=== PATIENT | male | born 1985 | race Caucasian/White ===

== ENCOUNTER 2018-10-11 18:08 | Inpatient (IN) | payer OTHER ==
[2018-10-11 19:37] LABS: Bilirubin Negative (Negative); Blood, Urine Large (Negative); Clarity CLEAR (Clear); Glucose, Urine (Dipstick) Negative (Negative); Leukocyte Negative (Negative); Nitrite Negative (Negative); Protein, Urine (Dipstick) 100 mg/dL (Neg-Trace); Specific Gravity, Urine 1.026 (1.002-1.036); Urobilinogen 0.2 mg/dL (0.2-1.0); pH, Urine 6.5 (5.0-9.0)
[2018-10-11 19:38] LABS: Bacteria/HPF None Seen HPF (None Seen); Hyaline Casts/LPF 0-3 HYALINE CAST LPF (0-3 Hyaline); Pathc Cast-AUWi Flag 0.13 (0-2.49); RBC/HPF GREATER THAN 50-TNTC HPF (0-3); Squamous Epithelial None Seen HPF (0-3); WBC/HPF 0-3 HPF (0-3)
[2018-10-11] MEDS ORDERED: Morphine 4 MG/ML VIAL SLOW IVP PRN (21:57)
[2018-10-11] MEDS ORDERED: HYDROcodone/Acetaminophen 5/325 mg Tablet PO PRN (21:57)
[2018-10-11] MEDS ORDERED: Ondansetron PF 4 MG/2 ML Vial IVP PRN (21:57)
[2018-10-11] MEDS ORDERED: Ondansetron ODT 4 MG TAB SL PRN (21:57)
[2018-10-11] MEDS ORDERED: Acetaminophen 325 MG TAB PO PRN (21:57)
[2018-10-11] MEDS: HYDROcodone/Acetaminophen 5/325 mg Tablet PO PRN (22:10)
[2018-10-11 22:48] VITALS: BMI 41.1
[2018-10-12] MEDS: HYDROcodone/Acetaminophen 5/325 mg Tablet PO PRN ×4 (03:03→21:32)
[2018-10-12] MEDS: Cefepime 2 GM in Sodium Chloride 0.9% 100 ML IVPB SCH ×2 (10:04→20:32)
--- NOTE | 2018-10-12 10:59 | PRG ---
DATE OF SERVICE: 10/12/2018 SUBJECTIVE: The patient did well overnight except he did not sleep. His pain is about the same. It has not worsened. He has been eating and not vomiting. OBJECTIVE: He has been afebrile with vital signs stable with 450 out from the urine standpoint. His scrotum is still significantly erythematous, but there is significant decrease in overall edema as it is much looser than yesterday's exam. There is still no crepitus. There is a little fibrinous debris on that prior excoriation at the midline raphae. There are no new labs as he did not have a white count previously. On physical exam, his overall rash appears worse than yesterday as it is more erythematous and seemingly more inflamed. Talking to the guard, she states that this has been there for 4 months without an obvious diagnosis, but certainly it looks like it is worse from last night to tonight, so there may be now component of a drug reaction allergy in addition to an underlying chronic skin condition. ASSESSMENT: We have a 32-year-old male with scrotal cellulitis, improving, but generalized rash that is worsening. For this reason, I spoke with Dr. Faria regarding this rash condition and he has ordered syphilis screening and will keep in mind that he may have an allergy to penicillin as he got Zosyn yesterday or has an allergy to Bactrim, which is what he was previously taken before coming in. For now, I would continue cefepime bedrest except for bathroom privileges, scrotal elevation and monitoring. Job ID: [id number]
--- NOTE | 2018-10-12 11:03 | ULT ---
FUltrasound renal: HISTORY: 32-year-old male with microhematuria FINDINGS: Right kidney: 11.5 x 6.5 x 7 cm Left kidney: 13 x 6 x 6.5 cm No hydronephrosis bilaterally. At least 2 tiny hyperechoic foci at upper pole parenchyma of left kidney without shadowing. Uncertain ty whether these are portions of blood vessels or tiny calculi. No moderate sized renal cyst or solid mass identified. Urinary bladder volume 220 mL at time of scan. Nonspecific mild diffuse mural thickening of urinary bladder. IMPRESSION: 1. At least 2 tiny echogenic foci in the left renal upper pole parenchyma, nonspecific. 2. No other sonographic renal abnormality identified. 3. Diffuse minimal mural thickening of urinary bladder.
[2018-10-12] MEDS ORDERED: Zolpidem Tartrate 5 MG TAB PO PRN (12:27)
--- NOTE | 2018-10-12 12:33 | PDOC.EVN ---
Event Note - Event Note Event Note: H&P [id number]
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
--- NOTE | 2018-10-12 19:23 | HP ---
CHIEF COMPLAINT: Scrotal swelling and itching all over the place. HISTORY OF PRESENT ILLNESS: This is a 32-year-old male, who states about 4 to 6 days ago he started to have severe significant scrotal swelling and edema. The patient also with lesions raised bumpy erythematous as well as itching for the past 4 to 5 days. The patient states that this has never happened before. Has been incarcerated for 4 months. Has had an infectious autoimmune etiology screening done approximately 2 years ago, which was negative for syphilis Lupe gonorrhea as well as HIV. The patient states that otherwise he has had tattoos all over his body ranging from the tip of his penis, which is smiley face to his legs and arms as well as other regions. The patient states that he has been sexually active. Has had multiple contacts without protection and also has had sexual contact with protection with women only. The patient otherwise denies any other associated symptoms. No alleviating or aggravating factors. The patient seen and examined in the ER, police and fire dispatcher is at bedside. All questions answered. ALLERGIES: NO KNOWN DRUG ALLERGIES. HOME MEDICATIONS: See MAR. PAST MEDICAL HISTORY: Positive for nothing. SOCIAL HISTORY: He was a drinker. Used to do IV drugs, has not been done in the last 4 months since incarceration. PHYSICAL EXAMINATION: VITAL SIGNS: Blood pressure is 142/91, O2 saturations 93% on room air, pulse of 66, temperature of 97.8, respiratory rate of 20. GENERAL: The patient lying in bed, obese, no acute distress. HEENT: Pupils equal, round, and reactive to light and accommodation. Extraocular muscles intact. Oral cavity moist and pink. NECK: Supple, mobile, and nontender. Thyroid appreciated. LUNGS: Clear to auscultation bilaterally. No respiratory distress. CARDIOVASCULAR: Faint systolic ejection murmur appreciated. S1 and S2. Sinus rhythm. ABDOMEN: Distended, rotund. Positive bowel sounds. Soft, nontender, and nondistended. EXTREMITIES: Trace pitting edema in bilateral lower extremities. 2+ peripheral pulses. NEUROLOGIC: Cranial nerves 2 through 12 intact. No loss of motor or sensory function. SKIN: Reveals pimples and pustules around his whole body, which appears to be very pruritic. The patient scratching his all body on the scrotal sac. He does have one lesion that looks slightly pustular stood mildly face tattoo noted on the tip of his penis. The patient is wincing in pain upon palpation of the lesions. LABORATORY AND IMAGING WORKUP: Ultrasound reviewed. CBC and BMP reviewed. ASSESSMENT: 1. Scrotal cellulitis. 2. Non-generalized erythematous rash on the body. 3. Obesity. PLAN: At this point in time, we will obtain HIV, syphilis, gonorrhea, and chlamydia workup. The patient is on Zosyn for now. We will also obtain blood cultures and echocardiogram in case this is infective endocarditis. We will check CBC, BMP in the morning and await workup. Case and plan discussed with the patient at length. He understood and agreed with this plan. Job ID: [id number]
[2018-10-12] MEDS: diphenhydrAMINE 25 MG CAP PO PRN (21:38)
[2018-10-13 07:45] LABS: #Eosinphils 0.5 thou/uL (0.0-0.7); #Lymphocytes 1.4 thou/uL (1.20-3.40); #Monocytes 0.5 thou/uL (0.11-0.59); #Neutrophils 3.4 thou/uL (1.40-6.50); %Basophils 0.8 % (0.0-1.0); %Eosinophils 8.1 % (0.0-10.0); %Lymphocytes 24.2 % (21.0-51.0); %Monocytes 8.8 % (0.0-10.0); %Neutrophils 58.1 % (42.0-75.0); Hemoglobin 13.6 g/dL (14.0-18.0); Mean Corpuscular Volume 93.8 fL (78.0-98.0); Mean Platelet Volume 7.8 fL (7.4-10.4); Platelet Count 236 thou/uL (130-400); RBC Distribution Width 12.8 % (11.5-14.5); Red Blood Cell (RBC) Count 4.38 mill/uL (4.70-6.10); White Blood Cell (WBC) Count 5.9 thou/uL (4.8-10.8)
[2018-10-13] MEDS: Cefepime 2 GM in Sodium Chloride 0.9% 100 ML IVPB SCH ×2 (07:58→20:25)
[2018-10-13 07:59] LABS: Anion Gap 12 mmol/L (10-20); BUN (Urea Nitrogen) 14 mg/dL (8.9-20.6); Calc. Creatinine Clearance 224 mL/min (70-130); Calcium 8.9 mg/dL (7.8-10.44); Carbon Dioxide 27 mmol/L (22-29); Chloride 105 mmol/L (98-107); Estimated GFR-MDRD Greater than 90; Glucose 87 mg/dL (70-105); Potassium 4.2 mmol/L (3.5-5.1); Sodium 140 mmol/L (136-145)
[2018-10-13] MEDS: Enoxaparin Sodium 40 MG/0.4 ML SYRINGE SC SCH (07:59)
[2018-10-13] MEDS: HYDROcodone/Acetaminophen 5/325 mg Tablet PO PRN ×2 (08:08→18:09)
[2018-10-13 08:18] LABS: Syphilis Antibody Nonreactive (Nonreactive); Syphilis Antibody Index 0.03 S/CO (<1.00 Non-Reactive)
[2018-10-13] MEDS: diphenhydrAMINE 25 MG CAP PO PRN ×2 (12:46→18:09)
--- NOTE | 2018-10-13 15:22 | PDOC.PN ---
- Subjective Encounter Start Date: 10/13/18 Encounter Start Time: 15:20 Patient seen and examined, no new issues or complaints. - Objective Vital Signs & Weight: Vital Signs (12 hours) Temp Pulse Resp BP Pulse Ox 10/13/18 08:00 97 10/13/18 07:01 97.7 F 71 18 112/74 97 Weight Weight 303 lb I&O: 10/12/18 10/13/18 10/14/18 06:59 06:59 06:59 Intake Total 700 2200 Output Total 450 2100 Balance 250 100 Result Diagrams: 10/13/18 07:10 10/13/18 07:10 Phys Exam - Physical Examination Constitutional: NAD HEENT: PERRLA, moist MMs, sclera anicteric Neck: no nodes, no JVD, supple Respiratory: no wheezing, no rales, no rhonchi Cardiovascular: RRR, no significant murmur, no rub Gastrointestinal: soft, non-tender, no distention Musculoskeletal: pulses present, edema present (trace) Neurological: non-focal, normal sensation Deviation from normal: skin lesions all over body -: pruritic lesions Dx/Plan (1) Cellulitis of scrotum Code(s): N49.2 - INFLAMMATORY DISORDERS OF SCROTUM Status: Acute (2) Pruritus of male genital organ Code(s): L29.3 - ANOGENITAL PRURITUS, UNSPECIFIED Status: Acute (3) Scrotal edema Code(s): N50.89 - OTHER SPECIFIED DISORDERS OF THE MALE GENITAL ORGANS Status : Acute - Plan * cont abx for now, consultation to ID * syphillis negative, rest of work up pending * cultures pending * labs in AM * case and plan d/w patient at length, he understood and agreed with this plan.
[2018-10-13 15:23] LABS: Albumin 3.5 g/dL (3.5-5.0); Calcium 9.1 mg/dL (7.8-10.44); Protein, Total 6.5 g/dL (6.0-8.3)
[2018-10-13 15:28] LABS: ALT (SGPT) 24 U/L (8-55); AST (SGOT) 18 U/L (5-34); Albumin 3.5 g/dL (3.5-5.0); Alkaline Phosphatase 69 U/L (40-150); Bilirubin, Direct 0.1 mg/dL (0.1-0.3); Bilirubin, Total 0.3 mg/dL (0.2-1.2); Protein, Total 6.6 g/dL (6.0-8.3)
--- NOTE | 2018-10-13 15:43 | RAD ---
FRadiograph chest 2 views: HISTORY: 32-year-old male with diffuse rash FINDINGS: Lungs are clear. Cardiomediastinal silhouette is normal. No pleural effusion or pneumothorax. IMPRESSION: Normal
[2018-10-13 15:45] LABS: Hep B Surf Ag Non-Reactive S/CO (NonReactive); Hep C IgG Ab Non-Reactive (NonReactive); Hep C Index 0.07 S/CO (0-0.79)
[2018-10-13 15:48] LABS: HBSAB Concentration 23.39 mIU/mL; Hep B Surf AB Reactive (NonReactive)
--- NOTE | 2018-10-13 15:51 | PRG ---
DATE OF SERVICE: 10/13/2018 SUBJECTIVE: The patient feels better. He has no complaints. He did shower, so he feels little less itchy, and Benadryl does seem to help. He has no scrotal complaints. OBJECTIVE: VITAL SIGNS: He has been afebrile with vital signs stable. : On exam, the scrotum is still decompressed in comparison to his original exam, but relatively similar to yesterday without any further breakdown or certainly no crepitus noted. I again rearranged the towel support in order to further elevate the scrotum itself. LABORATORY VALUES: Reveal a normal white count with an H and H now 13.6 and 41.1. His creatinine is good at 0.92. Urine culture is negative. IMAGING STUDIES: Renal ultrasound from 10/12/2018 reviewed 2 small hyperechoic spots noted in the left upper kidney that actually appear cortical. So even if they are tiny stones, I do not think that they would be in the collecting system or of concern. Otherwise, there were no masses, hydro, with a normal bladder. A PVR from the day prior was 18 mL by bladder scan. ASSESSMENT: We have a 32-year-old male admitted with scrotal edema as well as a generalized rash that seems to be worsening over time, which may or may not have been exacerbated by a drug reaction. He is currently on cefepime. I discussed the possibility of having Dermatology see him with Dr. Faria, and he will try to see if that is possible on Sunday. Otherwise, his scrotum is slowly improving and will take significant amount of time before it is resolved and it may be beneficial since he was not responding well to Bactrim or minocycline to go ahead and start him on an oral antibiotic while he is here and monitor insuring that the scrotum does not worsen once switched over to oral antibiotics since we do not have any culture to go off. So at this point, I will go ahead and switch him to oral antibiotic and monitor for now. Job ID: [id number] [facility]
--- NOTE | 2018-10-13 21:34 | CON ---
DATE OF CONSULTATION: 10/13/2018 REASON FOR CONSULTATION: Skin rash, scrotal swelling. HISTORY OF PRESENT ILLNESS: A 32-year-old, who is an inmate at [facility] for the past many weeks to months, has had persistent skin eruption with papules and prurigo scattered throughout the body skin both central as well as appendicular structures. The patient had HIV and hepatitis C test reportedly about 8 months ago, which were negative, and then was given minocycline a few weeks ago and then Bactrim, which did not help, the Bactrim was associated with swelling of the scrotum. He denies headaches, visual symptoms, sore throat, odynophagia, or dysphagia. No dental pain. No back pain. No cough or sputum production. No chest pain. No abdominal pain or diarrhea. No genitourinary symptoms. The patient had no neurological symptoms. PAST MEDICAL HISTORY: Not remarkable. PAST SURGICAL HISTORY: Negative. SOCIAL HISTORY: History of methamphetamine use up until 2 years ago. Used to drink alcoholic beverages fairly frequently. Heterosexual. FAMILY HISTORY: Noncontributory. ALLERGY HISTORY: Potentially sulfa drugs in view of the current findings. CURRENT MEDICATIONS: 1. Hydrocodone. 2. Cefepime. 3. Diphenhydramine. 4. Enoxaparin. 5. Sodium chloride. 6. Ambien. PHYSICAL EXAMINATION: VITAL SIGNS: Essentially normal. SKIN: Shows areas of self excoriation and diffuse maculopapular erythematous skin rash distributed through the appendicular and truncal skin area. There is swelling of the scrotum with excoriations and erythema, which is diffusely spread through the scrotal skin, but no tenderness. Multiple tattoos. LYMPH: No lymphadenopathy. HEENT: Ocular movements conjugate. Sclerae are white. Pupils are equal. Conjunctivae are normal. Nasal passages patent. Oral cavity normal. Numerous teeth in place with normal-appearing gums. No thrush. NECK: Supple. No jugular vein distention or carotid bruits. LUNGS: Symmetric. Clear breath sounds. HEART: S1 and S2, regular rate. No S3 or S4. ABDOMEN: Soft, not distended or tender. No ascites. No bladder distention. GENITAL: Shows the swollen scrotal area, but no tenderness. No joint inflammatory process. EXTREMITIES: Pulses 1+ in dorsalis pedis. Plantar responses are flexor. Strength in upper and lower extremities is 5/5. Cognitive function appears to be intact. LABORATORY DATA: White cell count 5.9, hemoglobin 13.6, platelets 236 with normal differential. Chemistry normal, although liver profile was not done. Urinalysis with large blood, greater than 50 rbc's, and serology with negative syphilis serology. IMAGING STUDIES: The patient had a renal ultrasound, which showed small echogenic foci, nonspecific and diffuse, but minimal thickening of the urinary bladder wall. A consult with Urology was obtained and the impression was scrotal edema, possible cellulitis. Echocardiogram, normal EF, poor endocardial definition. ASSESSMENT: 1. Chronic edema, at [facility], was treated with diuretics. 2. Chronic skin eruption, pruritic with maculopapular features and prurigo. DISCUSSION: Differential diagnoses includes systemic causes of maculopapular eruption including infections, particularly hepatitis and HIV, hypersensitivity reactions since the patient has been exposed to sulfa drugs and minocycline. Scabies appears to be less likely. The scrotal edema is likely hypersensitivity reaction to sulfa drugs, not an infectious process. The systemic causes of disseminated pruritus and prurigo need to be considered including autoimmune processes, malignancy, particularly lymphoma. Porphyria cutanea tarda and psoriasis would be other possibilities. We will order chest x-ray, submit other assays including hepatitis serology, HIV, the other components of the chemistry including liver function tests, calcium, serum protein electrophoresis, IgE quantitation. May need a skin biopsy depending on clinical progress, discontinue antimicrobial therapy. Job ID: [id number]
[2018-10-14] MEDS: diphenhydrAMINE 25 MG CAP PO PRN ×3 (01:04→17:42)
[2018-10-14] MEDS: HYDROcodone/Acetaminophen 5/325 mg Tablet PO PRN ×3 (01:04→17:40)
[2018-10-14 07:12] LABS: HIV (1/2) Antibody/Antigen Non-Reactive (NonReactive); HIV 1/2 INDEX 0.13 S/CO (<1.00)
[2018-10-14] MEDS: Enoxaparin Sodium 40 MG/0.4 ML SYRINGE SC SCH (09:02)
[2018-10-14] MEDS: Cefdinir 300 MG CAP PO SCH ×2 (09:02→20:07)
--- NOTE | 2018-10-14 09:03 | PDOC.PN ---
- Subjective Encounter Start Date: 10/14/18 Encounter Start Time: 09:02 Patient seen and examined, no new issues or complaints, all questions answered. - Objective Vital Signs & Weight: Weight Weight 303 lb I&O: 10/13/18 10/14/18 10/15/18 06:59 06:59 06:59 Intake Total 2200 2040 Output Total 2100 2275 Balance 100 -235 Result Diagrams: 10/13/18 07:10 10/13/18 07:10 Phys Exam - Physical Examination Constitutional: NAD HEENT: PERRLA, moist MMs, sclera anicteric Neck: no nodes, no JVD, supple Respiratory: no wheezing, no rales, no rhonchi Cardiovascular: RRR, no significant murmur, no rub Gastrointestinal: soft, non-tender, no distention, positive bowel sounds scrotal edema Musculoskeletal: pulses present, edema present (trace) Dx/Plan (1) Cellulitis of scrotum Code(s): N49.2 - INFLAMMATORY DISORDERS OF SCROTUM Status: Acute (2) Pruritus of male genital organ Code(s): L29.3 - ANOGENITAL PRURITUS, UNSPECIFIED Status: Acute (3) Scrotal edema Code(s): N50.89 - OTHER SPECIFIED DISORDERS OF THE MALE GENITAL ORGANS Status : Acute - Plan * infectious work up pending, thus far negative for HIV, hep B, syphillis * will check [place], C3 and C4 as well * cultures negative thus far * ID and urology following
--- NOTE | 2018-10-14 12:35 | PRG ---
DATE OF SERVICE: 10/14/2018 SUBJECTIVE: The patient actually slept well. He is still itchy, but possibly better. He has no complaints. OBJECTIVE: VITAL SIGNS: He has been afebrile with vital signs stable. : On exam, his scrotum is slightly smaller and definitely softer with less edema. The erythema still present, but not increased. No crepitus and decreased tenderness. ASSESSMENT AND PLAN: We reviewed how we will attempt to get Dermatology input for his skin issues, but otherwise switch him over to oral antibiotics and monitor his scrotum in-house since he failed to outpatient oral antibiotics already. Job ID: [id number] [facility]
[2018-10-14] MEDS: methylPREDNISolone Sod Succ 40 MG VIAL IVP SCH ×2 (13:39→21:28)
--- NOTE | 2018-10-14 18:47 | PRG ---
DATE OF SERVICE: 10/14/2018 SUBJECTIVE: Mr. Jaimes is feeling better. There is less itching. Skin eruption is improving. No abdominal pain or diarrhea. OBJECTIVE: VITAL SIGNS: Normal. SKIN: Shows quite prominent back eruption, which is sort of a morbilliform eruption, very typical of sulfa drug hypersensitivity, and then he has the other ones, which are more like prurigo like in the anterior portion and have been around for 7 months. LUNGS: Clear. HEART: S1 and S2. Regular rate. ABDOMEN: Soft, not distended. NEUROLOGIC: Nonfocal. LABORATORY DATA: Labs have been reviewed. Again, total IgE was 149, which is normal. Calcium normal. Albumin and total protein are normal. Chest x-ray without any abnormalities and hepatitis B and C serology, HIV nonreactive. 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 Recommend discontinuation of antimicrobial therapy and maybe short course of corticosteroids and avoid sulfa drug exposure in the future. Job ID: [id number]
[2018-10-15] MEDS: HYDROcodone/Acetaminophen 5/325 mg Tablet PO PRN ×3 (05:49→18:40)
[2018-10-15] MEDS: methylPREDNISolone Sod Succ 40 MG VIAL IVP SCH ×2 (05:50→15:07)
[2018-10-15] MEDS: diphenhydrAMINE 25 MG CAP PO PRN ×3 (05:50→18:42)
[2018-10-15 06:54] LABS: #Lymphocytes 0.9 thou/uL (1.20-3.40); #Monocytes 0.2 thou/uL (0.11-0.59); #Neutrophils 12.6 thou/uL (1.40-6.50); %Basophils 0.2 % (0.0-1.0); %Eosinophils 0.2 % (0.0-10.0); %Lymphocytes 6.7 % (21.0-51.0); %Monocytes 1.5 % (0.0-10.0); %Neutrophils 91.4 % (42.0-75.0); Hemoglobin 14.8 g/dL (14.0-18.0); Mean Corpuscular HGB CONC 32.3 g/dL (32.0-36.0); Mean Corpuscular Hemoglobin 30.5 pg (27.0-31.0); Mean Corpuscular Volume 94.4 fL (78.0-98.0); Mean Platelet Volume 7.6 fL (7.4-10.4); Platelet Count 285 thou/uL (130-400); RBC Distribution Width 12.7 % (11.5-14.5); Red Blood Cell (RBC) Count 4.86 mill/uL (4.70-6.10); White Blood Cell (WBC) Count 13.8 thou/uL (4.8-10.8)
[2018-10-15 07:09] LABS: Anion Gap 14 mmol/L (10-20); BUN (Urea Nitrogen) 12 mg/dL (8.9-20.6); Calc. Creatinine Clearance 237 mL/min (70-130); Calcium 9.8 mg/dL (7.8-10.44); Carbon Dioxide 27 mmol/L (22-29); Chloride 103 mmol/L (98-107); Estimated GFR-MDRD Greater than 90; Glucose 140 mg/dL (70-105); Potassium 4.6 mmol/L (3.5-5.1); Sodium 139 mmol/L (136-145)
[2018-10-15] MEDS ORDERED: Silver Nitrate Application 1 EACH TOP SCH (07:15)
[2018-10-15] MEDS: Cefdinir 300 MG CAP PO SCH (08:31)
[2018-10-15] MEDS: Enoxaparin Sodium 40 MG/0.4 ML SYRINGE SC SCH (08:31)
[2018-10-15] MEDS ORDERED: Lidocaine 1% (PF) 30 ML VIAL ONE (08:47)
[2018-10-15 09:49] LABS: Hemoglobin A1c 4.9 % (4.0-6.0)
[2018-10-15 13:17] LABS: HIV-1 Quantitative, RNA PCR <20 copies/mL (.)
--- NOTE | 2018-10-15 15:45 | PRG ---
DATE OF SERVICE: 10/15/2018 PROGRESS NOTE: SUBJECTIVE: He is feeling good. His scrotum has continued to improve on oral abx alone. He has no complaints. He had continued to void without difficulty. OBJECTIVE: His vitals have been stable. To document in my notes, a couple of days ago, he was bladder scanned for a PVR of 18mL. On exam, his scrotum is significantly decreased in edema and is much softer and without any crepitus or concern for infectious collections. LABORATORY VALUES: Reveal a white count that has now gone up to 13.8 without an obvious explanation given his improvement in scrotum. ASSESSMENT: We have a 32-year-old male admitted with scrotal edema, that failed outpatient antibiotic therapy, but has done well with initial IV and now switched to oral antibiotic; he is now taking Omnicef; however, his white count is elevated without a good explanation for this. Monitor and repeat WBC in AM. Regarding his skin rash/non-urologic issue.... he also has had this significant global body rash for 4 months. Yesterday, I reviewed in detail with a jewelry drill operator friend who was kind enough to give advice for this since we have no access to Dermatology as an inpatient. She and I reviewed his skin lesions, both in pictures and clinical history and description. She recommended a biopsy of his thigh lesions with a punch biopsy. I also discussed this with Pathology in the best way to obtain it, and they said with both formalin and saline. He is now status post biopsy (see procedure below), and hopefully, we will get some more information regarding that in the next 24h. For now, monitor. PROCEDURE: His thigh was prepped with Betadine. Then lidocaine was used (approximately 5 mL) to anesthetize the area of concern. Two 4-mm punch biopsies were taken, and the specimens were sent-- one in formalin and one saline. There was a silver nitrate stick, although there was only one, and this did not fully help with hemostasis. Therefore, I used a 4-0 Monocryl in a figure-of- eight fashion to control bleeding. Hemostasis was ensured. The area was cleansed. The patient tolerated the procedure well. Job ID: [id number] [facility]
[2018-10-15 16:10] LABS: Alpha 1 0.3 g/dL (0.0-0.4); Alpha 2 0.7 g/dL (0.4-1.0); Beta 1.2 g/dL (0.7-1.3); Gamma 0.9 g/dL (0.4-1.8); Globulin, Total 3.1 g/dL (2.2-3.9); M-Spike Not Observed g/dL (Not Observed)
[2018-10-15] MEDS ORDERED: Fioricet 325/50/40 mg Tablet PO PRN (16:32)
[2018-10-15 18:06] LABS: Chlam.trachomatis by PCR,Urine Not Detected (NotDetected)
[2018-10-15] MEDS: Calcium Carbonate 500 MG ChewTAB PO PRN (19:58)
--- NOTE | 2018-10-15 21:54 | PDOC.PN ---
- Subjective Encounter Start Date: 10/15/18 - Objective Vital Signs & Weight: Vital Signs (12 hours) Temp Pulse Resp BP Pulse Ox 10/15/18 19:41 98 F 85 16 119/71 95 Weight Weight 303 lb I&O: 10/14/18 10/15/18 10/16/18 06:59 06:59 06:59 Intake Total 2040 1000 Output Total 2275 1000 Balance -235 0 Result Diagrams: 10/15/18 06:21 10/15/18 06:21 Dx/Plan - Plan * .
[2018-10-16] MEDS: HYDROcodone/Acetaminophen 5/325 mg Tablet PO PRN ×3 (06:12→20:42)
[2018-10-16] MEDS: Calcium Carbonate 500 MG ChewTAB PO PRN ×3 (06:12→20:42)
[2018-10-16] MEDS: diphenhydrAMINE 25 MG CAP PO PRN ×3 (06:12→20:42)
[2018-10-16 06:29] LABS: Hemoglobin 14.2 g/dL (14.0-18.0); Mean Corpuscular HGB CONC 32.3 g/dL (32.0-36.0); Mean Corpuscular Hemoglobin 30.9 pg (27.0-31.0); Mean Corpuscular Volume 95.5 fL (78.0-98.0); Mean Platelet Volume 7.6 fL (7.4-10.4); Platelet Count 298 thou/uL (130-400); White Blood Cell (WBC) Count 20.1 thou/uL (4.8-10.8)
[2018-10-16 06:41] LABS: Complement-C4 35.7 mg/dL (15-53)
[2018-10-16 06:48] LABS: Band 3 % (5-11); Lymphocytes 4 % (21-51); MDiff Complete? YES; Monocytes 4 % (0-10); Neutrophil 89 % (42-75); Platelet Morphology Comment Appears Adequate; RBC Morphology Normal
[2018-10-16] MEDS: predniSONE 20 MG TAB PO SCH (08:20)
[2018-10-16] MEDS: Enoxaparin Sodium 40 MG/0.4 ML SYRINGE SC SCH (08:20)
[2018-10-16 16:06] LABS: ANA Symphony (Qualitative) Negative (Negative); ANA Symphony (Quantitative) Less than 0.1 Ratio (< 0.7 Negative); dsDNA IgG Antibody 0.6 IU/mL (<10 Negative)
--- NOTE | 2018-10-16 19:04 | PDOC.PN ---
- Subjective Encounter Start Date: 10/16/18 Encounter Start Time: 10:00 Subjective: pt up in bed no complains - Objective Vital Signs & Weight: Vital Signs (12 hours) Temp Pulse Resp BP Pulse Ox 10/16/18 12:00 98.1 F 85 20 141/90 H 98 10/16/18 08:00 98.1 F 70 20 159/99 H 95 Weight Weight 303 lb I&O: 10/15/18 10/16/18 10/17/18 06:59 06:59 06:59 Intake Total 1000 960 Output Total 1000 Balance 0 960 Result Diagrams: 10/16/18 05:58 10/15/18 06:21 Phys Exam - Physical Examination Neck: no nodes, no JVD, supple, full ROM Respiratory: no wheezing, no rales, no rhonchi, wheezing present, clear to auscultation bilateral Cardiovascular: RRR, no significant murmur, no rub, gallop, irregular Deviation from normal: rash appear improving Dx/Plan (1) Cellulitis of scrotum Code(s): N49.2 - INFLAMMATORY DISORDERS OF SCROTUM Status: Acute (2) Pruritus of male genital organ Code(s): L29.3 - ANOGENITAL PRURITUS, UNSPECIFIED Status: Acute (3) Scrotal edema Code(s): N50.89 - OTHER SPECIFIED DISORDERS OF THE MALE GENITAL ORGANS Status : Acute - Plan pt's rash is improving. tolerating oral steroids -: skin biopsy results pending. last day of abx today -: possible discharge in am * . Review of Systems - Review of Systems Respiratory: negative: Cough, Dry, Shortness of Breath, Hemoptysis, SOB with Excertion, Pleuritic Pain, Sputum, Wheezing Cardiovascular: negative: chest pain, palpitations, orthopnea, paroxysmal nocturnal dyspnea, edema, light headedness, other Gastrointestinal: negative: Nausea, Vomiting, Abdominal Pain, Diarrhea, Constipation, Melena, Hematochezia, Other - Medications/Allergies Allergies/Adverse Reactions: Allergies Allergy/AdvReac Type Severity Reaction Status Date / Time No Known Drug Allergies Allergy Verified 10/12/18 01:53 Medications: Current Medications Acetaminophen/Butalbital/Caffeine (Fioricet) 1 tab PO Q4H PRN PRN Reason: Headache Stop: 10/20/18 16:33 Last Admin: 10/15/18 18:30 Dose: 1 tab Hydrocodone Bitart/Acetaminophen ([place] 5/325) 1 tab PO Q6H PRN PRN Reason: Pain Last Admin: 10/16/18 14:13 Dose: 1 tab Calcium Carbonate (Tums) 1,000 mg PO Q4H PRN PRN Reason: Heartburn or Indigestion Last Admin: 10/16/18 14:17 Dose: 1,000 mg Diphenhydramine HCl (Benadryl) 25 mg PO Q6H PRN PRN Reason: Itching & Insomnia Last Admin: 10/16/18 14:13 Dose: 25 mg Enoxaparin Sodium (Lovenox) 40 mg SC 0900 JOANNA Last Admin: 10/16/18 08:20 Dose: 40 mg Prednisone (Prednisone) 40 mg PO QAM-[facility] Last Admin: 10/16/18 08:20 Dose: 40 mg Sodium Chloride (Flush - Normal Saline) 10 ml IVF Q12HR JOANNA Last Admin: 10/16/18 08:22 Dose: 10 ml Sodium Chloride (Flush - Normal Saline) 10 ml IVF PRN PRN PRN Reason: Saline Flush Zolpidem Tartrate (Ambien) 5 mg PO HSPRN PRN PRN Reason: Insomnia
--- NOTE | 2018-10-17 04:49 | PRG ---
DATE OF SERVICE: 10/16/2018 SUBJECTIVE: The patient has done well overnight. His rash is definitely improving and lesser too with the steroids. I reviewed with him how I had not seen Dr. Lin' consult until yesterday and therefore upon reviewing his assessment of the possibility for drug reaction based on the patient's timing of the Bactrim, I agree this could be a likely source and that it would be appropriate to stop the antibiotics, so I stopped the Omnicef yesterday. However, now my concern is that his white count was 13.8 yesterday with 91% neutrophils, now increased to 28.1, again with 90% neutrophils. The patient denies any cough, so when asked about shortness of breath, possibly a little, but otherwise he has no pain or discomfort and his scrotum is overall better than yesterday. OBJECTIVE: On exam, he has been afebrile and now somewhat hypertensive with blood pressure 159/99. On his physical exam, his rash overall is significantly less erythematous and angry, and his biopsy site is clean and dry with sutures still intact, which is absorbable and does not need to be removed. As mentioned, the white count is rising and now 28.1. His hemoglobin A1c was within normal limits. Pathology was not back when I reviewed this with him, but told him I would let him know when I heard something. Pathology came back shortly after I was able to see the patient and I spoke with them and they described a chronic on acute dermatitis with inflammation both superficial and deep, less likely psoriasis, but that was still in the differential as well as prurigo nodularis, but they would go ahead and send it out for further stains. I called the patient back and reviewed this with him. ASSESSMENT AND PLAN: We have a 32-year-old male admitted at first with concerns for cellulitis that more than likely was a drug reaction that involved significant scrotal edema and swelling as well as worsening of a preexisting skin rash that now appears to be an unrelated chronic dermatitis condition that responded nicely to steroids. So at this point, there is no further urologic issues and I will defer the following of his white count to the primary team and Infectious Disease. I am actually out of town as of and Sunday, so if there are further issues, please contact either of my partners for any urologic concerns. Otherwise, I will sign off for now and certainly, if he is still in the hospital on Sunday, I will check on him again. Job ID: [id number]
[2018-10-17 06:10] LABS: #Basophils 0.1 thou/uL (0.0-0.2); #Eosinphils 0.5 thou/uL (0.0-0.7); #Lymphocytes 2.7 thou/uL (1.20-3.40); #Monocytes 0.9 thou/uL (0.11-0.59); #Neutrophils 9.1 thou/uL (1.40-6.50); %Basophils 0.6 % (0.0-1.0); %Eosinophils 3.6 % (0.0-10.0); %Lymphocytes 20.6 % (21.0-51.0); %Monocytes 6.9 % (0.0-10.0); %Neutrophils 68.4 % (42.0-75.0); Hemoglobin 13.2 g/dL (14.0-18.0); Mean Corpuscular HGB CONC 31.8 g/dL (32.0-36.0); Mean Corpuscular Hemoglobin 29.9 pg (27.0-31.0); Mean Platelet Volume 7.2 fL (7.4-10.4); Platelet Count 250 thou/uL (130-400); RBC Distribution Width 12.8 % (11.5-14.5); Red Blood Cell (RBC) Count 4.42 mill/uL (4.70-6.10); White Blood Cell (WBC) Count 13.3 thou/uL (4.8-10.8)
[2018-10-17 06:29] LABS: Anion Gap 12 mmol/L (10-20); BUN (Urea Nitrogen) 18 mg/dL (8.9-20.6); Calc. Creatinine Clearance 240 mL/min (70-130); Calcium 9.1 mg/dL (7.8-10.44); Carbon Dioxide 30 mmol/L (22-29); Chloride 102 mmol/L (98-107); Estimated GFR-MDRD Greater than 90; Glucose 83 mg/dL (70-105); Potassium 3.8 mmol/L (3.5-5.1); Sodium 140 mmol/L (136-145)
[2018-10-17] MEDS: Calcium Carbonate 500 MG ChewTAB PO PRN ×2 (07:48→15:34)
[2018-10-17] MEDS: diphenhydrAMINE 25 MG CAP PO PRN ×2 (07:49→15:36)
[2018-10-17] MEDS: HYDROcodone/Acetaminophen 5/325 mg Tablet PO PRN ×2 (07:50→15:35)
[2018-10-17] MEDS: Enoxaparin Sodium 40 MG/0.4 ML SYRINGE SC SCH (07:52)
[2018-10-17] MEDS: predniSONE 20 MG TAB PO SCH (07:52)
--- NOTE | 2018-10-17 13:38 | PRG ---
DATE OF SERVICE: 10/16/2018 SUBJECTIVE: Feeling better. The eruptions associated with the Bactrim initiation have completely resolved almost. Still has the eruptions in the anterior part of his lower extremity and upper extremities. The biopsy results are pending. PHYSICAL EXAMINATION: VITAL SIGNS: Essentially normal. LUNGS: Clear. HEART: S1, S2. Regular rate. ABDOMEN: Soft, not distended. LABORATORY DATA: White cell count 13.3, hemoglobin 13, platelets 250, and he is on prednisone. ASSESSMENT AND DISCUSSION: Chronic eruption in the skin of the anterior legs and arms with some element of keratosis or hyperkeratosis and then a superimposed generalized erythroderma associated with Bactrim administration. The patient continues to improve and should be able to go back to tomorrow. Steroid taper. Will need follow up to see what the final skin biopsy results are to help clarify the nature of the original skin eruption. Job ID: [id number]
[2018-10-17 15:22] VITALS: BP 134/87; TEMP 97.9
--- NOTE | 2018-10-18 11:14 | DIS ---
DATE OF ADMISSION: 10/11/2018 DATE OF DISCHARGE: 10/17/2018 DISCHARGE DIAGNOSES: As of the following; 1. Cellulitis of the scrotum. 2. Pruritus of the male genital organ. 3. Scrotal edema. 4. Generalized rash. HOSPITAL COURSE: The patient is a 32-year-old male who is an inmate, who initially presented to the hospital on the with complaints of scrotal swelling and itching all over his body. At this time, the patient's Urology and Infectious Disease were consulted. The patient also underwent an echocardiogram, however, the echocardiogram was nonconclusive in concerns for possible endocarditis. The patient's skin lesions were thought to be secondary to Bactrim related. Since the patient was on Bactrim and minocycline prior to coming to the hospital. The patient continued to improve throughout the whole hospital stay. His immunology work including [place] was negative. Complements were normal. He also had serology work including chlamydia and syphilis, was negative. His hepatitis workup was negative. His HIV was nonreactive. 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 His tissue sample was also sent to Dermatopathology for further consultation and also to see if the patient needs further immunofluorescence. The patient will follow up with his clinic in [facility] and also I have informed the officers and the patient that they will have to get records from our hospital and also follow up with the final pathology results. This was also mentioned in his discharge packet. The patient feels much better. His lesions have dramatically improved. His home medications will be omeprazole and a Medrol Dosepak and Pepcid 20 mg b.i.d. PHYSICAL EXAMINATION: VITAL SIGNS: On discharge, his vitals are 97.7, 65, 18, 96% on room air, 132/86. GENERAL: He is awake, alert, and oriented x3. Does not appear in any distress. CV: S1, S2 present. No murmurs, rubs, or gallops. ABDOMEN: Soft and nontender. Bowel sounds are present x2. SKIN: He does have some lesions that appear to be healed. His scrotum swelling has dramatically improved. The patient continues to improve overall. DISCHARGE FOLLOWUP: Again, he would need to follow up with his primary care and also maybe with Dermatology. He will need to follow up with his final pathology results, which has been sent to Dermatopathology. Please make sure that they follow up and get the final pathology results. Job ID: [id number]
== END 2018-10-17 17:21 | DRG 728 ==
LOC: ERS 18:08 → T4-B 21:31
PROVIDERS: ADMIT Family Medicine; ATTEND Family Medicine
PROC: 0HBHXZX Excision of Right Upper Leg Skin, External Approach, Diagnostic (ICD-10-PCS; principal; 2018-10-15)
DX: N49.2 Inflammatory disorders of scrotum (principal); Z68.41 Body mass index [BMI] 40.0-44.9, adult; N50.89 Other specified disorders of the male genital organs; L29.1 Pruritus scroti; K21.9 Gastro-esophageal reflux disease without esophagitis; E66.9 Obesity, unspecified; Z87.891 Personal history of nicotine dependence; Z79.899 Other long term (current) drug therapy
CPT/HCPCS: 36415; 71046; 76770; 80048; 80076; 81001; 82785; 83036; 84155; 84165; 85025; 86038; 86160; 86225; 86706; 86780; 86803; 87086; 87340; 87389; 87491; 87536; 87591; 88305; 88312; 93306; 99285; J0692; J1650; J2001; J2920; J7050; Q0163